=== PATIENT | male | born 2000 | race Caucasian/White ===

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

== ENCOUNTER 2021-03-24 17:54 | Outpatient (REF) | payer MEDICAID, SELFPAY ==
[2021-03-28 14:50] LABS: GC Result Negative (Negative)
[2021-03-28 16:30] LABS: Chlamydia Result Positive (Negative)
== END 2021-03-24 17:55 | disposition home or self-care (01) ==
LOC: LBN 17:54
PROVIDERS: PCP Nurse Practitioner Pediatrics; Visit Provider Pediatrics
DX: Z11.3 Encounter for screening for infections with a predominantly sexual mode of transmission (principal); Z71.1 Person with feared health complaint in whom no diagnosis is made
CPT/HCPCS: 87491; 87591

== ENCOUNTER 2021-08-25 19:41 | Emergency (ER) | payer MEDICAID, SELFPAY ==
[2021-08-25 19:50] VITALS: BP 136/71; PULSE 70; RESP 14; TEMP 37.4; O2SAT 100
--- NOTE | 2021-08-25 19:59 | ED.GENADUL_ITS ---
Discharge Plan Disposition Patient Disposition: HOME Condition: Good Discharge Details Clinical Impression: Tick bite with subsequent removal of tick Primary Care Provider: Micah Ren ED Provider: Darion Lucero Home Meds and New Rx's Prescriptions: No Action No Known Home Meds Discharge Instructions Instructions: Tick Bite (ED) Additional Instructions: The tick that you had on your right leg is a dog tick. Thankfully these are not the major carriers of Lyme disease. Please apply alcohol or triple antibiotic ointment to the area. Return if there is any significant rash, swelling, fever or chills. If you notice any worsening of your symptoms, or any new symptoms such as vomiting, diarrhea, fever, chills, shortness of breath, chest pain, numbness, weakness, or fainting , please return immediately to the emergency department for reevaluation. Please follow up with your primary care provider as soon as possible for reassessment and reevaluation. As always, it was a pleasure participating in your medical care today. Referrals: Micah Ren, PATIENT ACCESS COORDINATOR [Primary Care Provider] - Medical Decision Making 20-year-old male with no significant past medical history presents today for evaluation of a tick bite on his right leg. Patient states he got home from work pulled off his pants and noticed that there was a tick on his perez. It was not there in the morning. He denies any other complaints. No rashes. No other modifying factors. He has been residing in this area in the [facility]. Exam demonstrates a dog tick present on the patient's right perez. It was removed without complication. No evidence of erythema migrans. No signs of cellulitis. No other complications. No indication for doxycycline treatment at this time as it was a dog tick and not a deer tick. Discussed red flags which return. I have extensively reviewed the treatment plan and discharge instructions with the patient. I have addressed all patient concerns at this time. The patient was made aware of what symptoms to monitor for that would warrant a return to the emergency department. Discussed the plan with the patient, they demonstrate verbal understanding and agreement with our assessment and plan at this time. The documentation in this chart was dictated using [employer] dictation software. Please excuse any dictation errors. HPI General Date/Time Provider Initiated Documentation: 08/25/21 19:53 . HPI Narrative: 20-year-old male with no significant past medical history presents today for evaluation of a tick bite on his right leg. Patient states he got home from work pulled off his pants and noticed that there was a tick on his perez. It was not there in the morning. He denies any other complaints. No rashes. No other modifying factors. He has been residing in this area in the [facility]. Related Data Home Medications Medication Instructions Recorded Confirmed Unknown [No Known Home Meds] 08/25/21 08/25/21 Allergies Allergy/AdvReac Type Severity Reaction Status Date / Time amoxicillin Allergy rash Unverified 08/25/21 19:54 General Stated Complaint: RashLesion MONY: 4 Review of Systems All systems reviewed & are unremarkable except as noted in HPI and below PFSH All Active Problems Tick bite with subsequent removal of tick (Acute) Well adult health check (Acute) Normal weight, pediatric, BMI 5th to 84th percentile for age (Acute 12/28/15) Learning difficulty (Acute 06/05/12) IEP in place Medical History Allergy to amoxicillin Routine child health exam (07/26/11) Family History Mother Essential hypertension hx of in 2nd and 3rd grade-resolved Father Heart disease had heart surgery and is on meds now for Other Neoplasm maternal side Social History Smoking/Tobacco Use Status: Never Second Hand Exposure: No Smoking risk assessment performed?: Yes Alcohol Intake: never Drug use: Never Adopted: No Foster care: No Education Level: high school Details: [employer] 11th grade Pets and animals: Yes (1 cat at Dad's) Pets and animals: cat(s) Current gender identity: male What type of physical activity do you participate in: other Details: Soccer, Bowling Seatbelt use: always Helmet use: Yes Helmet use: always Carbon monox detector in home: Yes Firearms in home: Yes (At Dad's) Firearms unloaded and locked: Yes Do you feel safe at home: Yes Do you feel safe in your relationship?: Yes Exam Narrative Exam Narrative: 1.Const: Well-nourished, Well-developed, appearing stated age 2.Eyes: PERRL, no conjunctival injection, and symmetrical lids. 3.ENT: Atraumatic external nose and ears. Moist MM. Neck: Symmetric, trachea midline, No thyromegaly. 4.CVS: +S1/S2, No murmurs or gallops. Peripheral pulses 2+ and equal in all extremities. Brisk capillary refill in all extremities. 5.RESP: Unlabored respiratory effort. Clear to auscultation bilaterally. No wheezes rales or rhonchi 6.GI: Soft, Nontender/Nondistended, No hepatosplenomegaly. No guarding or rebound. 7.MSK: Normocephalic/Atraumatic, Extremities w/o deformity or ttp No cyanosis or clubbing, Normal movement of all extremities 8.Skin: Warm, Dry. non- engorged dog tick is present on the patient's right perez. No evidence of rash. Tick was removed without complication 9.Neuro: international relations professor II-XII grossly intact. Sensation grossly intact, no focal neurologic deficits. 10.Psych: (AAO) x3. Appropriate mood and affect Course Vital Signs Vital signs: Vital Signs Temperature 37.4 C 08/25/21 19:50 Pulse 70 08/25/21 19:50 Respiratory Rate 08/25/21 19:50 Blood Pressure 136/71 08/25/21 19:50 Pulse Oximetry 100 08/25/21 19:50 Temperature 37.4 C 08/25/21 19:50 Temperature Source Skin 08/25/21 19:50 Pulse 70 08/25/21 19:50 Respiratory Rate 14 08/25/21 19:50 Respiratory Effort 08/25/21 19:55 Blood Pressure 136/71 08/25/21 19:50 Blood Pressure Position Sitting 08/25/21 19:50 Pulse Oximetry 100 08/25/21 19:50 Oxygen Delivery Method Room Air 08/25/21 19:50 Oxygen Flow Rate 0 08/25/21 19:50 Pain Level 0 08/25/21 19:50
== END 2021-08-25 20:02 | disposition home or self-care (01) ==
PROVIDERS: Emergency Provider Student in an Organized Health Care Education/Training Program; PCP Nurse Practitioner Pediatrics
DX: S80.861D Insect bite (nonvenomous), right lower leg, subsequent encounter (principal); W57.XXXD Bitten or stung by nonvenomous insect and other nonvenomous arthropods, subsequent encounter
CPT/HCPCS: 99281

== ENCOUNTER 2022-11-28 17:13 | Outpatient (REF) | payer MEDICAID, SELFPAY ==
[2022-11-30 13:25] LABS: GC Result Negative (Negative)
[2022-11-30 14:00] LABS: Chlamydia Result Positive (Negative)
== END 2022-11-28 17:14 | disposition home or self-care (01) ==
LOC: LBN 17:13
PROVIDERS: PCP Nurse Practitioner Pediatrics; Referring Provider Nurse Practitioner Family; Visit Provider Nurse Practitioner Family
DX: R30.0 Dysuria (principal); R31.9 Hematuria, unspecified
CPT/HCPCS: 87491; 87591